=== PATIENT | male | born 1990 | race Caucasian/White ===

== ENCOUNTER 2018-07-12 23:47 | Emergency (ER) | END 2018-07-13 00:36 | disposition home or self-care (01) ==

== ENCOUNTER 2018-07-23 19:25 | Emergency (ER) | payer OTHER ==
[~2018-07-23] VITALS: Ht 170.2 cm; Wt 83.2 kg
[~2018-07-23 19:25] MED LIST: CETI10CA PO; HC30CR25 TOP; PRED20TA PO
[2018-07-23 19:39] VITALS: BP 126/60; PULSE 56; RESP 18; Ht 170.2 cm; Wt 83.2 kg
[2018-07-23] MEDS ORDERED: DEXAMETHASONE 10 MG/ML 1 ML INJ IM ONE (22:30)
[2018-07-23] MEDS ORDERED: PRED20TA PO (22:45)
[2018-07-23] MEDS ORDERED: FEXO180T61 PO (22:45)
--- NOTE | 2018-07-23 22:48 | ERD ---
ER Documentation Chief Complaint Chief Complaint body rash. was given cortisone. states ineffective HPI 28-year-old male presents with an itchy rash for the last 2 weeks. Started with a URI. Denies any cough, sore throat, shortness of breath. Denies any rashes on the hands or feet. Denies any additional symptoms. He was seen 2 weeks ago and prescribed hydrocortisone and Benadryl without relief. ROS All systems reviewed and are negative except as per history of present illness. Medications Home Meds Active Scripts Fexofenadine Hcl* (Evelyn*) 180 Mg Tablet, 180 MG PO DAILY, #30 TAB Prov:DILEEP RENE MD 07/23/18 Prednisone* (Prednisone*) 20 Mg Tab, 40 MG PO DAILY for 4 Days, TAB Start July 24, 2018 Prov:DILEEP RENE MD 07/23/18 Hydrocortisone* Topical (Hydrocortisone* Topical) 2.5%-28.3 Gm Cream..g., 1 APPLIC TOP BID, #1 TUB Prov:DILEEP RENE MD 07/13/18 Prednisone* (Prednisone*) 20 Mg Tab, 40 MG PO DAILY for 3 Days, TAB Start July 13, 2018 Prov:DILEEP RENE MD 07/13/18 Cetirizine Hcl* (Zyrtec*) 10 Mg Capsule, 10 MG PO DAILY, #15 TAB.CHEW Prov:DILEEP RENE MD 07/13/18 Allergies Allergies: Coded Allergies: No Known Allergy (Unverified , 07/13/18) PMhx/Soc Medical and Surgical Hx: pt denies Medical Hx History of Surgery: Yes (appendectomy) Anesthesia Reaction: No Hx Neurological Disorder: No Hx Respiratory Disorders: No Hx Cardiac Disorders: No Hx Psychiatric Problems: No Hx Miscellaneous Medical Probl: No Hx Alcohol Use: No Hx Substance Use: No Hx Tobacco Use: No Smoking Status: Never smoker FmHx Family History: No diabetes, No coronary disease, No other Physical Exam Vitals Vital Signs Date Temp Pulse Resp B/P (MAP) Pulse Ox O2 O2 Flow FiO2 Time Delivery Rate 07/23/18 97.8 56 18 126/60 97 19:39 (82) Physical Exam Const: No acute distress Head: Atraumatic Eyes: Normal Conjunctiva ENT: Normal External Ears, Nose and Mouth. TMs and oropharynx normal. Neck: Full range of motion. No meningismus. Resp: Clear to auscultation bilaterally Cardio: Regular rate and rhythm, no murmurs Abd: Soft, non tender, non distended. Normal bowel sounds Skin: No petechiae or blanching rash primarily on the trunk. Most are small circular plaque type lesions. Back: No midline or flank tenderness Ext: No cyanosis, or edema Neur: Awake and alert Psych: Normal Mood and Affect Results 24 hrs Current Medications Medications Dose Sig/Raquel Start Time Status Last (Trade) Ordered Route PRN Stop Time Admin Dose Reason Admin 10 mg ONCE ONCE 07/23/18 DC 07/23/18 Dexamethasone IM 22:30 07/23/18 22:36 (Decadron) 22:31 Procedures/MDM Patient presents with nonspecific dermatitis on the trunk. He has a clinical appearance of a viral rash or possibly pityriasis type rash. No hand or foot lesions or additional symptoms to suggest sepsis, no evidence of purpura, life- threatening rashes or other concerning causes of presenting complaints. We will treat with short course prednisone, Evelyn, primary care follow-up and return precautions. The patient was stable with no new complaints during the ER course. Clinically, there is no current evidence to suggest meningitis, sepsis, acute abdomen, pneumonia, stroke, acute coronary syndrome, pulmonary embolism, aortic dissection or any other emergent condition appearing to require further evaluation or hospitalization. Patient counseled regarding my diagnostic impression and care plan. Prior to discharge all questions answered. Pt agrees with treatment plan and understands strict return precautions. Pt is instructed to follow up with primary care provider within 24-48 hours. Precautionary instructions provided including instructions to return to the ER if not improving or for any worsening or changing symptoms or concerns. Departure Diagnosis: Primary Impression: Rash Condition: Stable Patient Instructions: Dermatitis, Non-Specific Additional Instructions: Suspect viral rash. Recheck for fevers, new or worsening symptoms with primary care doctor. DILEEP RENE MD Jul 23, 2018 22:48
== END 2018-07-23 22:57 | disposition home or self-care (01) ==
LOC: FTE 19:25
DX: R21 Rash and other nonspecific skin eruption (principal)
CPT/HCPCS: 96372; J1100; Z7502